=== PATIENT | female | born 1945 | race American Indian/Alaskan Native ===

== ENCOUNTER 2016-12-01 21:01 | Inpatient (IN) | payer MEDICARE, OTHER ==
[2016-12-01 21:16] VITALS: BMI 47.8
--- NOTE | 2016-12-01 21:59 | ED PDOC ---
Arrival/HPI - General Chief Complaint: Weakness/Neurological Deficit Time Seen by Provider: 12/01/16 21:21 Historian: Patient - History of Present Illness Narrative History of Present Illness (Text): 12/01/16 21:52 Layne Urbano is a 71 year old female, with a history of hypertension, diabetes on insulin pump and hyperlipidemia, presents to the emergency department complaining of lightheadedness and mild chest discomfort since 7 pm today. Patient states she is "not feeling well" and feels like her blood sugar was dropping. At the emergency department, her glucose level is 94 and her last meal was at 4:30 today evening. Reports her glucose level is usually in 120s, but states it has been dropping low recently. Patient also reports of right sided back pain. Patient had a dry cough for few hours prior to arrival, which has resolved now. Denies fever, chills, shortness of breath, nausea, vomiting, diarrhea, urinary symptoms, or any other complaints at this time. Time/Duration: 1-3 hours Symptom Onset: Gradual Severity Level: Mild Activities at Onset: Light Context: Home Past Medical History - Provider Review Nursing Documentation Reviewed: Yes - Reproductive Menopause: Yes - Endocrine/Metabolic Hx Diabetes Mellitus Type 2: Yes - Psychiatric Hx Substance Use: No - Anesthesia Hx Anesthesia: No Family/Social History - Physician Review Nursing Documentation Reviewed: Yes Family/Social History: No Known Family HX Smoking Status: Never Smoked Hx Alcohol Use: No Hx Substance Use: No Allergies/Home Meds Allergies/Adverse Reactions: Allergies aspirin Allergy (Verified 12/01/16 21:40) upset stomach Review of Systems - Physician Review All systems were reviewed & negative as marked: Yes - Review of Systems Constitutional: Normal. absent: Fatigue, Fevers Respiratory: Normal. absent: SOB, Cough Cardiovascular: Chest Pain. absent: Palpitations Gastrointestinal: absent: Abdominal Pain, Diarrhea, Nausea, Vomiting Genitourinary Female: Normal. absent: Dysuria, Frequency Musculoskeletal: Back Pain Neurological: Other (lightheaded ). absent: Headache Psychiatric: Normal Physical Exam Vital Signs Reviewed: Yes Vital Signs Temp Pulse Resp BP Pulse Ox 12/02/16 02:00 78 18 163/77 H 96 12/02/16 00:34 79 18 165/94 H 96 12/01/16 21:29 98.1 F 77 18 160/77 H 97 Temperature: Afebrile Blood Pressure: Hypertensive Pulse: Regular Respiratory Rate: Normal Appearance: Positive for: Well-Appearing, Non-Toxic, Comfortable Pain Distress: None Mental Status: Positive for: Alert and Oriented X 3 Finger Stick Blood Glucose: 97 - Systems Exam Head: Present: Atraumatic, Normocephalic Pupils: Present: PERRL Conjunctiva: Present: Normal Mouth: Present: Moist Mucous Membranes. No: Dry Respiratory/Chest: Present: Clear to Auscultation, Good Air Exchange. No: Respiratory Distress, Accessory Muscle Use Cardiovascular: Present: Regular Rate and Rhythm, Normal S1, S2. No: Murmurs Abdomen: Present: Normal Bowel Sounds. No: Tenderness, Distention, Peritoneal Signs, Rebound, Guarding Back: Present: Normal Inspection. No: CVA Tenderness, Midline Tenderness Upper Extremity: Present: Normal Inspection. No: Cyanosis, Edema Lower Extremity: Present: Normal Inspection. No: Edema Neurological: Present: GCS=15, CN II-XII Intact, Speech Normal, Motor Func Grossly Intact, Normal Sensory Function Skin: Present: Dry, Normal Color, Cold (cool to touch ). No: Rashes Psychiatric: Present: Alert, Oriented x 3, Normal Insight, Normal Concentration Medical Decision Making ED Course and Treatment: 12/01/16 22:04 Impression: A 71 year old female who presents to the emergency department complaining of lightheadedness since 7 pm today. States she feels like her blood glucose was dropping. Plan: -- EKG -- Labs, cardiac enzymes -- IV fluids -- Urine culture -- Urinalysis -- Reassess and disposition Progress Notes: EKG interpreted by me: NSR @ 70 bpm. Left axis deviation. 12/01/16 23:41 Case discussed with who is aware and agrees with the plan to observe patient to telemetry for chest pain. Accepts patient under her service. - Lab Interpretations Lab Results: 12/01/16 22:20 12/01/16 22:20 Lab Results 12/01/16 22:20: Sodium 140, Potassium 4.3, Chloride 103, Carbon Dioxide 27, Anion Gap 14, BUN 14, Creatinine 0.9, Est GFR ( Amer) > 60, Est GFR (Non- Af Amer) > 60, Random Glucose 94, Calcium 9.8, Magnesium 2.1, Total Bilirubin 0.7, AST 31, ALT 19, Alkaline Phosphatase 93, Lactate Dehydrogenase 484, Total Creatine Kinase 144, Troponin I 0.06, NT-Pro-B Natriuret Pep 196, Total Protein 8.8 H, Albumin 4.2, Globulin 4.7, Albumin/Globulin Ratio 0.9 L 12/01/16 22:20: WBC 6.4, RBC 5.02, Hgb 13.9, Hct 41.8, MCV 83.3, MCH 27.7, MCHC 33.3, RDW 15.3 H, Plt Count 224, MPV 9.2, Gran % 45.9 L, Lymph % (Auto) 37.7 H, [place] % (Auto) 13.9 H, Eos % (Auto) 2.2, Baso % (Auto) 0.3, Gran # 2.94, Lymph # 2.4, [place] # 0.9 H, Eos # 0.1, Baso # 0.02 12/01/16 21:22: POC Glucose (mg/dL) 97 - RAD Interpretation Radiology Orders: 12/01/16 21:51 CHEST PORTABLE [RAD] Stat - Medication Orders Current Medication Orders: Sodium Chloride (Sodium Chloride 0.9%) 1,000 mls @ 100 mls/hr IV .Q10H LELA Last Admin: 12/01/16 22:37 Dose: 100 mls/hr - Scribe Statement The provider has reviewed the documentation as recorded by the Scar Dooley Provider Attestation: All medical record entries made by the Scar were at my direction and personally dictated by me. I have reviewed the chart and agree that the record accurately reflects my personal performance of the history, physical exam, medical decision making, and the department course for this patient. I have also personally directed, reviewed, and agree with the discharge instructions and disposition. Disposition/Present on Arrival - Present on Arrival Any Indicators Present on Arrival: No History of DVT/PE: No History of Uncontrolled Diabetes: No Urinary Catheter: No History of Decub. Ulcer: No History Surgical Site Infection Following: None - Disposition Have Diagnosis and Disposition been Completed?: Yes Diagnosis: Chest pain Disposition: HOME/ ROUTINE Disposition Time: 23:00 Patient Plan: Admission, Discharge Condition: STABLE
[2016-12-01 22:21] LABS: ADD MANUAL DIFF? NO
[2016-12-01] MEDS: Sodium Chloride 0.9% 1,000 ML IV SCH (22:37)
[2016-12-01 22:43] LABS: ALB/GLOB RATIO 0.9 (1.1-1.8); ALKALINE PHOSPHATASE 93 U/L (38-133); ALT/SGPT 19 U/L (7-56); AST/SGOT 31 U/L (15-39); BILIRUBIN,TOTAL 0.7 mg/dL (0.2-1.3); BLOOD UREA NITROGEN 14 mg/dL (7-21); CALCIUM 9.8 mg/dL (8.4-10.5); CARBON DIOXIDE 27 mmol/L (21-33); CHLORIDE 103 mmol/L (98-107); GFR AFRICAN-AMERICAN > 60; GLUCOSE,RANDOM 94 mg/dL (70-110); MAGNESIUM 2.1 mg/dL (1.7-2.2); POTASSIUM 4.3 mmol/L (3.6-5.0); SODIUM 140 mmol/L (132-148); TOTAL PROTEIN 8.8 g/dL (5.8-8.3)
[2016-12-01 22:44] LABS: BASO # 0.02 K/mm3 (0.0-2.0); BASO % 0.3 % (0.0-3.0); EOS # 0.1 (0.0-0.7); EOS % 2.2 % (1.5-5.0); GRAN # 2.94 (1.4-6.5); GRAN % 45.9 % (50.0-68.0); HEMATOCRIT 41.8 % (36.0-48.0); LYMPH # 2.4 (1.2-3.4); LYMPH % 37.7 % (22.0-35.0); MEAN CELL VOLUME 83.3 fL (80.0-105.0); MEAN CORPUSCULAR HEMOGLOBIN 27.7 pg (25.0-35.0); MEAN CORPUSCULAR HGB CONC 33.3 g/dl (31.0-37.0); MEAN PLATELET VOLUME 9.2 fl (7.0-11.0); MONO # 0.9 (0.1-0.6); MONO % 13.9 % (1.0-6.0); PLATELET COUNT 224 10^3/uL (120.0-450.0); RED CELL DISTRIBUTION WIDTH 15.3 % (11.5-14.5); WHITE BLOOD COUNT 6.4 10^3/ul (4.5-11.0)
[2016-12-01 22:55] LABS: TROPONIN I 0.06 ng/mL
[2016-12-02 00:47] LABS: URINE BILIRUBIN MODERATE (NEGATIVE); URINE BLOOD NEGATIVE (NEGATIVE); URINE GLUCOSE (UA) >=1000 mg/dL (NEGATIVE); URINE KETONE NEGATIVE (NEGATIVE); URINE LEUKOCYTE ESTERASE NEGATIVE Leu/uL (NEGATIVE); URINE PROTEIN 30 mg/dL (<30 mg/dL); URINE UROBILINOGEN 0.2 E.U./dL (<1 E.U./dL)
[2016-12-02 00:55] LABS: URINE APPEARANCE SL CLOUDY (CLEAR); URINE COLOR LIGHT YELLOW (YELLOW)
[2016-12-02 00:59] LABS: URINE EPITHELIAL CELLS 0 - 2 /hpf (0-5); URINE RBC 0 - 2 /hpf (0-2); URINE WBC 0 - 2 /hpf (0-6)
[2016-12-02] MEDS: Sodium Chloride 0.9% 1,000 ML IV SCH ×2 (08:00→16:30)
--- NOTE | 2016-12-02 09:22 | RAD ---
HISTORY: r/o infiltrate COMPARISON: No prior. FINDINGS: LUNGS: No active pulmonary disease. PLEURA: No significant pleural effusion identified, no pneumothorax apparent. CARDIOVASCULAR: Mild cardiomegaly OSSEOUS STRUCTURES: No significant abnormalities. VISUALIZED UPPER ABDOMEN: Normal. OTHER FINDINGS: None. IMPRESSION: No active disease.
[2016-12-02] MEDS: INSULIN PUMP SC SCH ×2 (12:06→12:08)
--- NOTE | 2016-12-02 12:15 | CON ---
DATE: 12/02/2016 INDICATIONS: Weakness, dizziness, vertigo. HISTORY OF PRESENT ILLNESS: This is a 71-year-old diabetic woman who recently moved here from [place] who felt weak, dizzy, vertiginous and as if she had a low blood sugar yesterday. She came to the Emergency Room and was admitted. She had taken some juice and at the time the EMT arrived, her blood sugar was 88. Subsequently, her blood sugars have not been very low, but she continues to experience dizziness, weakness and not feeling well. There is a vertiginous component. She has some chronic back pain. There is no chest pain , shortness of breath, orthopnea, PND, syncope, palpitations, claudication, fever, chills, cough, sputum production, hemoptysis, abdominal pain, nausea, vomiting, diarrhea, constipation, or melena. She does experience chronic dyspnea on exertion. PAST MEDICAL HISTORY: Notable for diabetes and COPD/asthma. She states that she underwent a cardiac stress test in approximately 2008 which was uneventful. She is not aware of any cardiac diagnoses. There is no history of myocardial infarction, rheumatic fever, angina, congestive heart failure, arrhythmia, stroke, TIA or gout. MEDICATIONS: At the time of admission include Advair, Coreg, Invokana, Lasix, Lodine, gabapentin, omeprazole, Victoza, simvastatin, metformin. She is on an insulin pump. ALLERGIES: SHE NOTES AN ALLERGY TO ASPIRIN, BUT DESCRIBES A GASTRIC INTOLERANCE. There is a history of GERD. SOCIAL HISTORY: She is a nonsmoker. She does not drink alcohol. She lives at home. She is ambulatory. FAMILY HISTORY: Noncontributory. REVIEW OF SYSTEMS: A 10-point review of systems is otherwise unremarkable except as noted above. PHYSICAL EXAMINATION: GENERAL: She is a well-developed woman lying on a stretcher in the Emergency Room in no acute distress. VITAL SIGNS: She is in sinus rhythm at 86 beats per minute. She is afebrile, blood pressure 156/83, respirations 18, O2 sat 95-97% on room air and nasal cannula. HEENT: Reveals no neck vein distention, thyromegaly, or carotid bruits. Mucous membranes are moist. Conjunctivae are pink. NECK: Supple. CHEST: Lung salvador clear. HEART: Revealed normal first and second heart sounds. ABDOMEN: Obese, soft and benign. Bowel sounds present. No mass, organomegaly , tenderness, rebound, guarding, CVA tenderness or palpable abdominal aortic aneurysm. EXTREMITIES: Revealed no cyanosis, clubbing, or edema. NEUROLOGIC: Awake, alert and oriented. PSYCHIATRIC: Normal as to mood and affect. SKIN: Warm and dry, no rashes or cellulitis. LABORATORY AND IMAGING: A chest x-ray is a portable study/ It reveals no active disease. The EKG demonstrates regular sinus rhythm with a leftward axis , poor R-wave progression, nonspecific ST-wave changes. White count and platelet count normal, hemoglobin/hematocrit unremarkable. Electrolytes, BUN, creatinine and blood sugar, LFTs, CK are all unremarkable. Troponin 0.06 and 0.06 which is indeterminate. BNP is 196. Urinalysis is noted. IMPRESSION: The patient is a 71-year-old woman complaining of weakness, dizziness, some vertiginous component, chronic dyspnea on exertion, chronic back pain. There is no chest pain. I have discussed the case with Dr. Lebron. She will be admitted to telemetry. We will get serial EKGs and enzymes. We will monitor her blood sugars. I will order an echocardiogram. She will have an endocrine diabetes consultation with Dr. Anderson. I would check stool for occult blood, monitor I's and O's, check postural vital signs and hemoglobin A1c. We will follow along with you. I will make additional recommendations based on her clinical course. An outpatient nuclear stress test can be arranged in the near future as well. Jean Carlos Carolina MD cc: [id number] TT: 12/02/2016 12:14:46 Confirmation # [id number] Dictation # [id number] mario QUINN
[2016-12-02] MEDS ORDERED: Levalbuterol 0.63 MG/3 ML Inhal Soln UD IH PRN (12:21)
--- NOTE | 2016-12-02 13:04 | HP ---
HISTORY OF PRESENT ILLNESS: This 71-year-old female was examined at her bedside. Her case was reviewed in detail with vault teller Dr. Jean Carlos Carolina and her nurse, Myra Garibay. The patient presented to the [facility] late last evening complaining of weakness, dizziness in the setting of hypoglycemia. She has recently moved to the [facility] area from [place] where she had been treated with multiple medications for her type 2 diabetes mellitus including metformin, Victoza, Invokana, insulin coverage and insulin pump. The patient is in the process of trying to find a local tip length checker and feels that her symptoms may be secondary to hypoglycemia. In the Emergency Room, she was evaluated and found to have an unremarkable EKG. No active chest pain and flat troponins of no clinical significance as per cardiology. At present, the patient is awaiting an endocrinology evaluation and denying any active chest pain, shortness of breath , fever or chills. PAST MEDICAL HISTORY: She has longstanding type 2 diabetes mellitus, chronic obstructive pulmonary disease, chronic hypertension, morbid obesity, neuropathy , GERD, hyperlipidemia and degenerative arthritis. OUTPATIENT MEDICATIONS: Had included Advair, Coreg, Invokana, Lasix, Lodine, Neurontin, Prilosec, Victoza, insulin pump, Zocor and metformin. ALLERGIES: She has no known allergies to medication, but states ASPIRIN CAUSES GASTRIC INTOLERANCE WITH GERD. SOCIAL HISTORY: She is a nondrinker, nonsmoker, non-IV-drug misuser. FAMILY HISTORY: Noncontributory. REVIEW OF SYSTEMS: HEAD: No headache or seizure. EYES: No change in visual acuity. EARS: No hearing loss. THROAT: No swallowing difficulty. NECK: No stiffness. CARDIAC: Chronic hypertension. PULMONARY: No cough, no hemoptysis. GASTROINTESTINAL: She has a history of GERD and an unremarkable endoscopy, colonoscopy within the past 5 years. GENITOURINARY: No dysuria. SKIN: Without rash. NEUROLOGICAL: Neuropathy. VASCULAR: No claudication. PSYCHOLOGICAL: No knowledge of depression. NEUROLOGICAL: No knowledge of stroke. BMI: 47.8 kg/m2. PHYSICAL EXAMINATION: GENERAL: She is in a normal sinus rhythm on the cardiac cath rn. VITAL SIGNS: Temperature 98.2, respirations 18, pulse 82, and blood pressure 143/75 with a pulse ox of 96% room air. HEENT: Head is normocephalic, atraumatic. Eyes: No icterus. Ears clear. Throat not injected. NECK: Supple. HEART: S1, S2. No pathological rubs, murmurs, or gallops. LUNGS: Clear. ABDOMEN: Obese. No palpable organomegaly, no rebound, no guarding, no tenderness. EXTREMITIES: No edema. SKIN: Without rash. NEUROLOGIC: Intact. PSYCHOLOGICAL: Alert. VASCULAR: Legs warm to touch. LABORATORY DATA: White count 6400, hemoglobin 13.9, hematocrit 41.8, platelets 224,000. Sodium 140, K 4.3, chloride 103, bicarb 27, BUN 14, creatinine 0.9, random blood sugar was 97. All liver function testing was normal including bilirubin 0.7, AST 31, ALT 19, alk phos 93. Troponin x 2 was 0.06 with a CPK normal at 144. BNP was normal, 196. Urinalysis shows 30 mg/dL of protein, positive glucose, no bacteria, no white cells. Chest x-ray showed no active disease. EKG shows normal sinus rhythm with nonspecific ST-T wave changes. IMPRESSION: A 71-year-old female with multiple medical problems as listed above. Doubt myocardial infarction, doubt unstable angina, with presentation most likely secondary to hypoglycemia in the setting of type 2 diabetes mellitus and multiple diabetic medications as listed above. PLAN: At present is to admit this patient to the cardiac unit. She will be seen by Dr. Angela Anderson from endocrinology. She is to only have her insulin pump as per Dr. Anderson and will discontinue metformin, Victoza, Invokana, and insulin a.c. meals as she was taking previously. She will have serial cardiac enzymes. A 2D echocardiogram has been ordered. She will continue on Brovana inhalational therapy q. 12, Coreg 12.5 mg p.o. b.i.d., insulin pump as outlined by Dr. Anderson, Lasix 40 mg p.o. b.i.d., Lipitor 20 mg p.o. at dinnertime, Pepcid 40 mg p.o. at bedtime, Pulmicort inhalational therapy q. 12, and 0.9 saline at 100 mL per hour with Xopenex q. 6 hours p.r.n. I have ordered a head CT without contrast for completeness sake. She continues with nasal O2 p.r.n. She continues on a heart healthy diabetic diet. Blood sugars a.c. meals and at bedtime. Orthostatic blood pressures have been ordered by Dr. Carolina. Ultimate plan will be for cardiac and endocrine medication adjustment. The patient is scheduled to have TSH, lipids, hemoglobin A1c with ultimate plan for discharge to home and follow up with cardiology and endocrinology in their offices when they feel the patient is stable for discharge. All of this has been discussed in detail with the patient, co-consultants and her nurse. Greater than 60 minutes was spent in the care, coordination of care, review of care and outlining of care for this patient today. Christine Lebron MD cc: [phone] TT: 12/02/2016 13:03:51 mn KAI
--- NOTE | 2016-12-02 13:25 | CON ---
DATE: 12/02/2016 HISTORY OF PRESENT ILLNESS: This is a 71-year-old female with known history of type 2 insulin-requir ing diabetes, currently using, currently on a continuous insulin pump infusion and presents here with sudden onset of dizziness and lightheadedness and supervening precordial chest pain and is now being admitted for workup of acute coronary syndrome, and is being referred also for diabetic evaluation a nd management. She admits to having possibly had a brief bout of hypoglycemia, although she was able to document only a glucose level of 94 at the time of her sudden onset of symptoms as mentioned jero pablo. PAST MEDICAL HISTORY: As mentioned above, history of type 2 insulin-requiring diabetes on a continuo us insulin pump infusion as noted. She is also using Victoza 0.6 mg once daily given subcutaneously with Invokana 300 mg once daily as ordered. Moreover, she has also been using metformin at 500 mg da pancho. History of hypertensive cardiovascular disease and dyslipidemia, history of diabetic polyneurop athy and vasculopathy as noted. FAMILY HISTORY: Positive for hypertension and diabetes. SOCIAL HISTORY: The patient has supportive family. No known substance use. REVIEW OF SYSTEMS: As mentioned above. Admits to generalized body weakness with easy fatigability a nd tiredness and suboptimal energy level. Also admits to episodic bouts of dizziness and lightheaded ness, worse on the day of admission, which she ascribes to a possible hypoglycemic event. Also, admi ts to sudden onset of precordial chest pain and tightness, again noted on the day of admission with o ccasional bouts of shortness of breath, especially on exertion. Her oral intake is variable and subo ptimal with occasional dyspepsia and habitual constipation. PHYSICAL EXAMINATION: GENERAL: This is an obese female in no apparent distress. VITAL SIGNS: Blood pressure of 150/90, pulse of 70 beats per minute and regular, temperature 98, res pirations 20. Height is 5 feet 3 inches, weight is 270 pounds. HEENT: Head normocephalic. Eyes anicteric with pink conjunctivae. Fundoscopy not possible at this time. Ears, nose and throat otherwise normal. NECK: Supple. Thyroid gland is normal size. No carotid bruits or any cervical adenopathy. CARDIOPULMONARY: Some adynamic precordium. S1, S2 is rapid and regular. LUNGS: Clear to auscultation. ABDOMEN: Obese, soft with positive bowel sounds. EXTREMITIES: No peripheral edema. Pulses are +2 bilaterally. LABORATORY DATA: The chemistry showed a BUN of 14, sodium 140, potassium 4.3, chloride 103, CO2 of 2 7, glucose 94, and creatinine 0.9. Her albumin level is 4.2, calcium level is 9.8 and she has normal liver transaminases. ASSESSMENT: This is a 71-year-old female with known history of type 2 insulin-requiring diabetes, op timally controlled on a continuous insulin pump infusion with underlying morbid obesity, which has __ ___ further increased insulin resistance and impaired glucose tolerance thereof. PLAN OF MANAGEMENT: As discussed with the patient and staff, we will allow the patient to continue t he use of her insulin pump and also be allowed to adjust her own basal and bolus insulin dose regimen as given. We will obtain serial chemistries and supplement accordingly as needed. We will obtain a hemoglobin A1c to confirm her prior glycemic control and baseline thyroid function studies and lipid panel will be ordered, especially with the possibility of fatty liver with underlying metabolic syn drome as noted. We will reinforce diabetic education and dietary instructions at the time of this ad mission and also reinforce weight loss efforts and healthier food choices thereof. A dietary evaluat ion with our inpatient electrical troubleshooter will be obtained at this time. We will follow. Angela Anderson MD cc: [id number] TT: 12/02/2016 13:24:26 Confirmation # [id number] Dictation # [id number] connor
--- NOTE | 2016-12-02 13:28 | CT ---
PROCEDURE: CT HEAD WITHOUT CONTRAST. HISTORY: vertigo COMPARISON: None available. TECHNIQUE: Axial computed tomography images were obtained through the head/brain without intravenous contrast. Radiation dose: Total exam DLP = 745 mGy-cm. This CT exam was performed using one or more of the following dose reduction techniques: Automated exposure control, adjustment of the mA and/or kV according to patient size, and/or use of iterative reconstruction technique. FINDINGS: HEMORRHAGE: No intracranial hemorrhage. BRAIN: No mass effect or edema. No atrophy or chronic microvascular ischemic changes. VENTRICLES: Unremarkable. No hydrocephalus. CALVARIUM: Unremarkable. PARANASAL SINUSES: Unremarkable as visualized. No significant inflammatory changes. MASTOID AIR CELLS: Unremarkable as visualized. No inflammatory changes. OTHER FINDINGS: None. IMPRESSION: Normal CT of the Head.
[2016-12-02] MEDS ORDERED: Pneumococcal 23-Valent Vaccine IM ONE (14:17)
[2016-12-02] MEDS: Arformoterol 15 mcg/2 ml Inh Sol IH SCH (19:33)
[2016-12-02] MEDS: Budesonide 0.25 mg/2 ml Inhal Susp UD IH SCH (19:33)
--- NOTE | 2016-12-02 21:56 | CARD ---
APPROVED REPORT EKG Measurement Heart [id number] MD [id number] <Conclusion> Normal sinus rhythm Left axis deviation Abnormal ECG
--- NOTE | 2016-12-02 22:50 | CARD ---
APPROVED REPORT EKG Measurement Heart [id number] SD [id number] <Conclusion> Normal sinus rhythm with sinus arrhythmia Left axis deviation Nonspecific intraventricular conduction delay Abnormal ECG
[2016-12-03] MEDS: Sodium Chloride 0.9% 1,000 ML IV SCH ×3 (02:07→17:15)
[2016-12-03] MEDS: Arformoterol 15 mcg/2 ml Inh Sol IH SCH ×2 (08:09→19:27)
[2016-12-03 08:13] LABS: ALKALINE PHOSPHATASE 82 U/L (38-133); ALT/SGPT 18 U/L (7-56); AST/SGOT 28 U/L (15-39); BILIRUBIN,TOTAL 0.5 mg/dL (0.2-1.3); BLOOD UREA NITROGEN 13 mg/dL (7-21); CALCIUM 9.4 mg/dL (8.4-10.5); CARBON DIOXIDE 27 mmol/L (21-33); CHLORIDE 107 mmol/L (98-107); CHOLESTEROL 181 mg/dL (130-200); GFR AFRICAN-AMERICAN > 60; GLUCOSE,RANDOM 96 mg/dL (70-110); POTASSIUM 4.2 mmol/L (3.6-5.0); SODIUM 141 mmol/L (132-148); TOTAL PROTEIN 7.7 g/dL (5.8-8.3)
[2016-12-03] MEDS: Budesonide 0.25 mg/2 ml Inhal Susp UD IH SCH ×2 (08:14→19:27)
[2016-12-03 08:23] LABS: TROPONIN I 0.06 ng/mL
--- NOTE | 2016-12-03 09:33 | PN ---
DATE: 12/03/2016 SUBJECTIVE: The patient is seen sitting in bed on telemetry. She states she still does not feel wel l. She feels she has a great deal of indigestion. She denies any chest pain or dyspnea. MEDICATIONS: Include Brovana, carvedilol 12.5 mg b.i.d., Lasix 40 mg b.i.d., Lipitor 20 mg daily, Pe pcid 40 mg daily, Pulmicort inhaler, Xopenex and her insulin pump. OBJECTIVE: GENERAL: She is an obese middle-aged woman. VITAL SIGNS: Her blood pressure is 160/80 with a pulse of 84 in sinus, respirations are 14. She is afebrile. HEENT: No JVD. CHEST: A few scattered rhonchi. HEART: PMI displaced laterally with distant sounds noted. ABDOMEN: Soft, obese, nontender, normoactive bowel sounds. EXTREMITIES: No edema. DIAGNOSTIC DATA: Potassium 4.2, BUN and creatinine are 13 and 0.8, glucose is 96. Cholesterol is 18 1 with triglycerides 231 with an HDL of 40, an LDL of 81. TSH 4.79. Three sets of cardiac enzymes w ere negative. IMPRESSION: 1. Weakness and dizziness, etiology uncertain. No evidence of hemodynamic instability or significan t dysrhythmias. 2. History of diabetes. 3. History of obesity. RECOMMENDATIONS: Her current medications should be continued. An echocardiogram is pending and will be reviewed. An eventual stress test would be advisable. No other specific cardiac testing appears necessary at the present time. The need for weight loss and control of diabetes was discussed with her. We will follow along as needed. Tamir Martin MD cc: [id number] TT: 12/03/2016 09:32:53 Confirmation # [id number] Dictation # [id number] tn
--- NOTE | 2016-12-03 12:03 | PN ---
DATE: 12/03/2016 ROOM: 265. SUBJECTIVE: This is a 71-year-old obese female with uncontrolled type 2 insulin requiring diabetes m any years ago and has since then been on a [employer] insulin pump for the last 5 years with superveni ng optimal and excellent metabolic control of her diabetic condition at this time. Her latest hemogl obin A1c was 6.4% prior to this admission and we are still awaiting the current A1c level obtained to day. She is undergoing cardiac workup for acute coronary syndrome as noted. Her current chemistry s hows a BUN of 13, sodium 141, potassium 4.2, chloride 107, CO2 27, glucose 96, and creatinine 0.8. H er TSH is slightly elevated at 4.79, possibly dealing with subclinical hypothyroidism. The patient h as opted not to go on any kind of new medications for now and will follow her thyroid studies in the next 3 months or so as noted. For now, we will allow the patient to continue her [employer] insulin pu mp infusion with continuous basal insulin as given, and she has been allowed to self-adjust her bolus insulin doses accordingly. We will obtain serial chemistries and supplement accordingly as needed. We will follow. Angela Anderson MD cc: [id number] TT: 12/03/2016 12:02:41 Confirmation # [id number] Dictation # [id number] rodger
[2016-12-03] MEDS: INSULIN PUMP SC SCH (12:42)
[2016-12-03] MEDS ORDERED: Insulin Lispro 1 UNITS/0.01 ML SC ONE (18:00)
--- NOTE | 2016-12-03 21:36 | PN ---
DATE: 12/03/2016 This 71-year-old female was examined at her bedside. Her case was reviewed in detail with her nurse, Kaushik Marrero, registered nurse. The patient remains in a normal sinus rhythm on the cardiac monit or. She denies any chest pain. She is complaining of neuropathy and musculoskeletal pain and is cur rently on insulin pump with her other diabetic medication on hold, including metformin, Invokana, and Victoza. The patient has blood sugars in the low 90s and has had no cardiac arrhythmia on the cardia c monitor and is denying any fever or chills. PHYSICAL EXAMINATION: VITAL SIGNS: Temperature 98.3, respirations 20, pulse 80, blood pressure 154/74 with pulse ox 97% on room air. HEAD: Normocephalic, atraumatic. EYES: Show no icterus. EARS: Clear. THROAT: Noninjected. NECK: Supple. HEART: Regular S1, S2. No pathological rubs, murmurs, or gallops. LUNGS: Clear. ABDOMEN: Obese. EXTREMITIES: No edema. SKIN: Without rash. NEUROLOGIC: Intact. PSYCHOLOGIC: Alert. VASCULAR: Legs warm to touch. LABORATORY DATA: Sodium 141, K 4.2, chloride 107, bicarbonate 27, BUN 13, creatinine 0.8, random blo od sugar is 96. All liver function testing is normal. Bilirubin 0.5, AST 28, ALT 18, alkaline phosp hatase 82. CPK 196, troponin 0.06 x 3. Cholesterol 181, LDL 81. T4 normal at 5.6. Urinalysis, no bacteria, no red blood cells. Head CT shows no acute abnormalities. No evidence of recent stroke an d was interpreted as a normal head CT as reviewed by Dr. Whittaker. IMPRESSION: A 71-year-old female with hypoglycemia, type 2 diabetes mellitus, morbid obesity, chroni c hypertension, hyperlipidemia, peripheral neuropathy, peptic ulcer disease with gastroesophageal ref lux disease, chronic obstructive pulmonary disease, degenerative arthritis. PLAN: At present is to continue Xopenex inhalational therapy, Tylenol p.r.n. pain, gentle IV fluids of 0.9 saline at 100 mL per hour, Pulmicort inhalational therapy, Pepcid 40 mg at bedtime, Neurontin 300 mg b.i.d. and Neurontin 600 mg at bedtime, Lipitor 20 mg p.o. at dinnertime, Lasix 40 mg p.o. b.i .d., insulin pump as outlined by Dr. Anderson from endocrinology, Cozaar 50 mg p.o. daily has been added, Coreg 12.5 mg p.o. b.i.d. continues and she receives Brovana inhalational therapy q. 12. Hemoglobin A1c is pending. The patient is awaiting 2D echocardiogram. She is ordered to have a heart healthy d iabetic diet, nasal O2 p.r.n., pulmonary toiletry and fall precautions. Once she is cleared by her e ndocrine and blood bank credit clerk, we will ready the patient for discharge to home. Greater than 6 0 minutes was spent in the care, coordination of care, review of care with this patient, her nurse an d co-consultants today. Overall prognosis remains stable. Christine Lebron MD cc: [phone] TT: 12/03/2016 21:36:10 Confirmation # [id number] Dictation # [id number] rodger
[2016-12-04] MEDS: Sodium Chloride 0.9% 1,000 ML IV SCH ×3 (02:32→22:05)
--- NOTE | 2016-12-04 05:49 | CARD ---
APPROVED REPORT EXAM: Two-dimensional and M-mode echocardiogram with Doppler and color Doppler. 2D DIMENSIONS IVSd1.3 (0.7-1.1cm)LVDd4.6 (3.9-5.9cm) PWd1.4 (0.7-1.1cm)LVDs3.4 (2.5-4.0cm) FS (%) 25.1 %LVEF (%)49.6 (>50%) M-Mode DIMENSIONS Left Atrium (MM)3.60 (2.5-4.0cm)Aortic Root3.20 (2.2-3.7cm) Aortic Cusp Exc.1.70 (1.5-2.0cm) Aortic Valve AoV Peak Odkvxmow319.0cm/sAoV VTI34.3cmAO Peak GR.10mmHg LVOT Peak Uokaivus783.0cm/sLVOT VTI22.50cmAO Mean GR.7mmHg Mitral Valve MV E Knvvxjqe399.0cm/sMV A Zfvrapsd857.0cm/sE/A ratio0.9 TDI Lateral E' Peak V5.85cm/sMedial E' Peak V5.65cm/sE/Lateral E'23.8 E/Medial E'24.6 Tricuspid Valve TR Peak Oxtdmusd752vc/sRAP QGIFFEAD94hkGjNY Peak Gr.41mmHg IPWQ84tpMr LEFT VENTRICLE The left ventricle is normal size. There is mild concentric left ventricular hypertrophy. The systolic function is mildly impaired. There is moderate hypokinesis in the basal inferoseptal wall. RIGHT VENTRICLE The right ventricle is normal size. The right ventricular systolic function is normal. ATRIA The left atrium size is normal. The right atrium size is normal. The interatrial septum is intact with no evidence for an atrial septal defect. AORTIC VALVE The aortic valve is mildly sclerotic. No aortic regurgitation is present. MITRAL VALVE The mitral valve is normal in structure. The mitral valve leaflets are calcified. Mitral regurgitation is mild. TRICUSPID VALVE The tricuspid valve is normal in structure. There is moderate tricuspid regurgitation. PULMONIC VALVE The pulmonary valve is normal in structure. GREAT VESSELS The aortic root is normal in size. The IVC is normal in size and collapses >50% with inspiration. PERICARDIAL EFFUSION There is no pleural effusion. There is no pericardial effusion. <Conclusion> Normal chamber size. Mildly reduced LV systolic function with basal inferoseptal hypokinesis. Mild MR. Moderate TR.
[2016-12-04] MEDS: Budesonide 0.25 mg/2 ml Inhal Susp UD IH SCH ×2 (08:52→19:22)
[2016-12-04] MEDS: Arformoterol 15 mcg/2 ml Inh Sol IH SCH ×2 (08:52→19:22)
--- NOTE | 2016-12-04 11:17 | PN ---
DATE: 12/04/2016 SUBJECTIVE: The patient is seen lying in bed on telemetry. She states she is comfortable. She feel s better today. She denies any dizziness at the moment. CURRENT MEDICATIONS: Remain Brovana, Coreg 12.5 mg b.i.d., Cozaar 50 mg daily, Lasix 40 mg b.i.d., L ipitor 20 mg daily, Neurontin, Pepcid 40 mg daily, Pulmicort inhaler, and Xopenex. OBJECTIVE: GENERAL: She is an obese middle-aged woman. VITAL SIGNS: Her blood pressure is 117/54 with a pulse of 84 in sinus. Respirations are 16. She is afebrile. HEENT: No JVD. CHEST: A few scattered rhonchi heard. HEART: PMI in normal position. No pathologic murmur or gallops audible. ABDOMEN: Soft, nontender, normoactive bowel sounds. EXTREMITIES: No edema. DIAGNOSTIC DATA: An echocardiogram was reviewed and reveals evidence of normal chamber size with mil dly-reduced LV systolic function, and evidence of basal inferoseptal hypokinesis, mild mitral regurgi tation, and moderate tricuspid regurgitation were seen. No morning labs are pending. IMPRESSION: 1. Recent weakness and dizziness. Improved. No clear etiology determined. 2. History of diabetes. 3. History of obesity. 4. Mild wall motion abnormality on echocardiogram, thus, needs stress testing in the near future. RECOMMENDATIONS: From cardiac standpoint, she appears stable for discharge home today. Current card iac medications should be continued. An outpatient stress test will be arranged. We will be happy t o continue to follow along as needed. Tamir Martin MD cc: [id number] TT: 12/04/2016 11:16:44 Confirmation # [id number] Dictation # [id number] hill
[2016-12-04] MEDS: INSULIN PUMP SC SCH (12:30)
--- NOTE | 2016-12-04 13:12 | PN ---
DATE: 12/04/2016 This 71-year-old female was evaluated at bedside in the presence of her sister, Maia. Her case was reviewed in detail with herself, her family and her nurse, Arthur Velazco, registered nurse. The patient is chest pain free, remains in a normal sinus rhythm on the air sampling and monitoring, but is weak and deconditioned in the setting of hypoglycemia and is currently off all additional antidiabetic medication including Victoza, metformin and Invokana. She continues on her insulin pump under the direction of Dr. Angela Anderson from endocrinology and is awaiting a TCU evaluation. PHYSICAL EXAMINATION: VITAL SIGNS: At present, her air sampling and monitoring shows normal sinus rhythm, her temperature is 97.7, respirations are 20, pulse is 76, and blood pressure is 117 /54 with a pulse ox of 94% on room air. HEAD: Normocephalic, atraumatic. EYES: Show no icterus. EARS: Clear. THROAT: Noninjected. NECK: Supple. HEART: Has a regular S1, S2. LUNGS: Clear. ABDOMEN: Soft. EXTREMITIES: No clubbing, no cyanosis, no edema. SKIN: Warm and dry. NEUROLOGICAL: Intact, but deconditioned. VASCULAR: Legs warm to touch. PSYCHOLOGICAL: Alert and oriented x 3. White count 6400, hemoglobin 13.9, hematocrit 41.8, platelets 224,000. Sodium 141, K 4.2, chloride 107, bicarb 27, BUN 13, creatinine 0.8, random blood sugar is 96. Bilirubin 0.5, AST 28, ALT 18, alk phos 82. Cholesterol 181, LDL 81. T4 normal 5.6. Urinalysis, 30 mg/dL of protein, 0-2 RBCs. IMPRESSION: A 71-year-old female with uncontrolled type 2 diabetes mellitus who presented with weakness and deconditioning in the setting of hypoglycemia, also with comorbidities of chronic obstructive pulmonary disease, morbid obesity , chronic hypertension, stable atherosclerotic heart disease. Her 2D echocardiogram is showing slightly decreased left ventricular wall motion and patient is being followed by Dr. Martin from cardiology, who will be arranging an outpatient stress test through his office. The patient also with insulin pump, insulin-dependent diabetes mellitus, hyperlipidemia, peripheral neuropathy, degenerative arthritis, peptic ulcer disease with gastroesophageal reflux disease. PLAN: At present is to continue Xopenex inhalational therapy, 0.9 saline at 100 mL per hour, Pulmicort inhalational therapy, Pepcid p.o. 40 mg at bedtime, Neurontin 300 mg p.o. b.i.d. and 600 mg at bedtime, Lipitor 20 mg p.o. at dinnertime, Lasix 40 mg p.o. b.i.d., insulin pump under the direction of Dr. Angela Anderson, Cozaar 50 mg p.o. daily, Coreg 12.5 mg p.o. b.i.d. and Brovana inhalational therapy q. 12. She is receiving nasal O2 p.r.n., a heart healthy diabetic diet. She is receiving physical therapy. I have placed a request for transitional care unit evaluation and transfer. The patient will need close endocrinology management as an outpatient and will need a stress test as an outpatient as well, which will be arranged by the cardiology office and all of this was discussed in detail and greater than 60 minutes was spent in the care, coordination of care, review of care and discussion of care with this patient at her bedside in the presence of her sister, Maia, with co-consultants from endocrine and cardiology and the nursing staff as well. Her prognosis remains stable at present. Christine Lebron MD cc: [id number] TT: 12/04/2016 13:12:04 Confirmation # [id number] Dictation # [id number] en MTDD
--- NOTE | 2016-12-04 14:22 | PN ---
DATE: 12/04/2016 ENDO FOLLOWUP NOTE ROOM: 265. SUBJECTIVE: This is a 71-year-old female with known history of type 2 insulin-requiring diabetes wit h near optimal metabolic control of her diabetic condition on a Medtronic insulin pump as given. She is undergoing workup for acute coronary syndrome because of recent precordial chest pain on the back ground of underlying vasculopathy as noted. Her latest chemistries include a BUN of 13, sodium 141, potassium 4.2, chloride 107, CO2 of 27, gluco se 96, and creatinine 0.8. Her thyroid study showed a slightly subclinical hypothyroidism with a T4 of 5.6 and a TSH of 4.79. H er hemoglobin A1c is still pending at this time. So for now, we will actually allow the patient to continue her Medtronic insulin pump, giving continu ous subcutaneous insulin, and we will allow her also to give her own basal and adjust her own bolus i nsulin dose regimen accordingly to optimize metabolic control. I actually requested the patient to c all the Medtr[employer] insulin pump company, as she just recently transferred out from [place] to [facility] over the past 2 months or so prior to admission. I also recommend that she sees an endocri nologist locally to optimize her metabolic control and also to adjust the levothyroxine dose accordin gly. We will obtain serial chemistries and supplement accordingly as needed. We will follow. Angela Anderson MD cc: [phone] TT: 12/04/2016 14:22:10 Confirmation # [id number] Dictation # [id number] hill
[2016-12-05] MEDS: Budesonide 0.25 mg/2 ml Inhal Susp UD IH SCH ×2 (08:24→19:40)
[2016-12-05] MEDS: Arformoterol 15 mcg/2 ml Inh Sol IH SCH ×2 (08:24→19:40)
[2016-12-05] MEDS: Sodium Chloride 0.9% 1,000 ML IV SCH ×2 (10:18→11:30)
--- NOTE | 2016-12-05 12:08 | PN ---
DATE: 12/05/2016 This 71-year-old female was examined at her bedside. She is receiving IV fluids and feels less dizzy and less weak today. She has been followed daily by Dr. Angela Anderson from endocrinology who has advised the patient to use only her insulin pump insulin at this time for the management of her diabetes, and has recommended the discontinuation of metformin, Victoza, and Invokana. The patient will be followed as an outpatient by Dr. Martin from cardiology, who will be arranging for an office-based stress test for completeness sake. I am working with case management to locate an travel sales consultant to accept this patient for diabetic management after she is discharged. The patient denies any fever, chills, chest pain, or shortness of breath. welt cutter shows normal sinus rhythm. PHYSICAL EXAMINATION VITAL SIGNS: Temperature 97.8, respirations 20, pulse 80, blood pressure 122/ 73 with a pulse ox of 96% on room air. HEAD: Normocephalic, atraumatic. EYES: No icterus. EARS: Clear. THROAT: Noninjected. NECK: Supple. HEART: Regular S1, S2. No pathological rubs, murmurs, or gallops. LUNGS: Clear to auscultation. ABDOMEN: Obese. EXTREMITIES: No edema. SKIN: Without rash. NEUROLOGIC: Intact. PSYCHOLOGICAL: Alert. VASCULAR: Legs warm to touch. LABORATORY DATA: White count 6400, hemoglobin 13.9, hematocrit 41.8, platelets 224,000. Sodium 141, K 4.2, chloride 107, bicarb 27, BUN 13, creatinine 0.8. Random blood sugar is 96. All liver function testing was normal including bilirubin 0.5, AST 28, ALT 18, alk phos 82, cholesterol 181, LDL 81, T4 5.6. Hemoglobin A1c is pending. Head CT showed no acute changes. Chest x-ray showed no active disease. A 2D echocardiogram read by Dr. Tamir Martin from cardiology showed normal chamber size, mildly reduced left ventricular systolic function with basal inferior septal hypokinesia and moderate mitral regurgitation. IMPRESSION: A 71-year-old morbidly obese female with uncontrolled insulin- dependent diabetes mellitus and comorbidities of chronic obstructive pulmonary disease, hypertension, hyperlipidemia, peripheral neuropathy, spinal arthritis, peptic ulcer disease with gastroesophageal reflux disease, insulin-dependent diabetes mellitus. PLAN: At present is to await evaluation for transitional care rehab for reconditioning and gait training versus discharge to home. She is awaiting physical therapy evaluation at present. The patient will need outpatient followup by endocrinology and cardiology regarding her diabetic and cardiovascular issues. She is currently receiving medications including insulin pump as outlined by Dr. Anderson, Federico inhalational therapy q. 12 hours, Coreg 12.5 mg p.o. b.i.d., Cozaar 50 mg p.o. daily, Lasix 40 mg p.o. b.i.d., Lipitor 20 mg p.o. at dinnertime, Neurontin 300 mg p.o. b.i.d., Neurontin 600 mg p.o. at bedtime, Pepcid 40 mg p.o. at bedtime, Pulmicort inhalational therapy q. 12, and Xopenex inhalational therapy q. There is an order for nasal O2 p.r.n., heart-healthy diabetic diet, blood sugar checks a.c. meals and at bedtime and Physical therapy. All of the above was discussed in detail with the patient at her bedside, as well as her nurse and co-consultants, and greater than fifty minutes was spent in the care, coordination of care, and review of care with this patient, her nurse, and co-consultants today. Prognosis remains stable at present. Christine Lebron MD cc: [id number] TT: 12/05/2016 11:59:29 Confirmation # [id number] Dictation # [id number] jn MTDD
[2016-12-05] MEDS: INSULIN PUMP SC SCH (12:51)
[2016-12-06] MEDS: Sodium Chloride 0.9% 1,000 ML IV SCH (00:32)
[2016-12-06 06:15] VITALS: O2SAT 95
[2016-12-06] MEDS: Budesonide 0.25 mg/2 ml Inhal Susp UD IH SCH (07:48)
[2016-12-06] MEDS: Arformoterol 15 mcg/2 ml Inh Sol IH SCH (07:48)
--- NOTE | 2016-12-06 08:23 | PN ---
DATE: 12/05/2016 ROOM: 266 This is a 71-year-old male with recent near optimal metabolic control of her diabetic condition with known history of type 2 insulin-requiring diabetes, currently on a Medtronic insulin pump and is now being followed closely for metabolic management. Her hemoglobin A1c level is not back yet, though it was ordered on admission. Her latest glucose levels have ranged from 95-140 mg/dL. Her latest chem istries include a BUN of 13, sodium 141, potassium 4.2, chloride 107, CO2 of 27, glucose 96, and crea tinine 0.8. So, at this time, we will continue the same basal and bolus insulin dose regimen using her Medtronic insulin pump with continuous infusion of Humalog insulin as given. Her A1c is as yet pending, but th e prior A1c done was 6.4% with her primary physician in [place] ____ but she has transferred here ____ over the last month or so. So, at this time, she is cleared for discharge and recommended a local en docrinologist in [place], i.e. Dr. Boubacar Hernández, who is a local clerk of works that can follow her for ongoing outpatient diabetic management. We will follow. Angela Anderson MD cc: [phone] TT: 12/05/2016 16:35:46 Confirmation # [id number] Dictation # [id number] sn
[2016-12-06 09:54] LABS: ADD MANUAL DIFF? NO
[2016-12-06 10:08] LABS: BASO # 0.02 K/mm3 (0.0-2.0); BASO % 0.3 % (0.0-3.0); EOS # 0.2 (0.0-0.7); EOS % 2.5 % (1.5-5.0); GRAN # 2.84 (1.4-6.5); GRAN % 46.9 % (50.0-68.0); HEMATOCRIT 40.8 % (36.0-48.0); LYMPH # 2.3 (1.2-3.4); LYMPH % 37.2 % (22.0-35.0); MEAN CELL VOLUME 83.6 fL (80.0-105.0); MEAN CORPUSCULAR HEMOGLOBIN 27.5 pg (25.0-35.0); MEAN CORPUSCULAR HGB CONC 32.8 g/dl (31.0-37.0); MEAN PLATELET VOLUME 9.2 fl (7.0-11.0); MONO # 0.8 (0.1-0.6); MONO % 13.1 % (1.0-6.0); PLATELET COUNT 224 10^3/uL (120.0-450.0); RED CELL DISTRIBUTION WIDTH 15.1 % (11.5-14.5); WHITE BLOOD COUNT 6.1 10^3/ul (4.5-11.0)
[2016-12-06 10:20] LABS: ALKALINE PHOSPHATASE 73 U/L (38-133); ALT/SGPT 23 U/L (7-56); AST/SGOT 24 U/L (15-39); BILIRUBIN,TOTAL 0.4 mg/dL (0.2-1.3); BLOOD UREA NITROGEN 15 mg/dL (7-21); CALCIUM 9.7 mg/dL (8.4-10.5); CARBON DIOXIDE 30 mmol/L (21-33); CHLORIDE 103 mmol/L (98-107); GFR AFRICAN-AMERICAN > 60; GLUCOSE,RANDOM 171 mg/dL (70-110); MAGNESIUM 1.7 mg/dL (1.7-2.2); POTASSIUM 4.1 mmol/L (3.6-5.0); SODIUM 140 mmol/L (132-148); TOTAL PROTEIN 8.1 g/dL (5.8-8.3)
[2016-12-06] MEDS: INSULIN PUMP SC SCH (11:34)
[2016-12-06 12:39] VITALS: BP 139/74; PULSE 76; RESP 20; TEMP 97.9
--- NOTE | 2016-12-06 14:44 | PN ---
DATE: 12/06/2016 ENDO FOLLOWUP NOTE ROOM: 266. This is a 71-year-old female with recent admission for acute coronary syndrome and currently undergoi ng cardiac workup at this time, and is also being followed closely for metabolic management. She has near optimal metabolic control of her diabetic condition being insulin-requiring, currently on the M edtronic insulin pump giving her basal and bolus insulin dosing regimen as noted. LABORATORY DATA: Her glucose values have ranged from 78-138 and 140 mg/dL. It was 95-161 yesterday as noted. The latest chemistries showed a BUN of 15, sodium 140, potassium 4.1, chloride 103, CO2 of 30, glucos e 171, and creatinine 0.8. So, at this time, we will continue her ongoing insulin pump infusion giving continuous basal insulin with Humalog as given. She has been allowed to self-adjust her own basal and bolus insulin dosing re gimen as noted. We are still awaiting the reports of the hemoglobin A1c, which will confirm her prio r glycemic control, although she has been having near optimal metabolic values over the past year wit h her latest A1c of 6.4% prior to admission. We will obtain serial chemistries and supplement accord ingly as needed. We will follow. Angela Anderson MD cc: [phone] TT: 12/06/2016 14:43:17 Confirmation # [id number] Dictation # [id number] hill
--- NOTE | 2016-12-07 11:08 | DS ---
FINAL DIAGNOSES: Uncontrolled insulin-dependent diabetes mellitus - improved, morbid obesity, atherosclerotic heart disease - stable, peptic ulcer disease, hyperlipidemia, hypertension, peripheral neuropathy, chronic obstructive pulmonary disease, degenerative arthritis. DISPOSITION: Home. FOLLOWUP: With Dr. Martin, cardiology, for outpatient stress test through his office. The patient has an appointment with Dr. Cyr, endocrinology, [address] [place] [address], , 01/02 at 10:30 a.m. regarding continued endocrinology management. DISCHARGE DIET: Heart-healthy diabetic. DISCHARGE MEDICATIONS: Zocor 40 mg p.o. daily, Prilosec 20 mg p.o. b.i.d., Cozaar 50 mg p.o. daily, insulin pump, as per dose instructions by Dr. Angela Anderson from endocrinology, Neurontin 300 mg b.i.d., Neurontin 600 mg p.o. at bedtime, Lasix 40 mg p.o. b.i.d., Advair Diskus 250/50 two puffs b.i.d., Coreg 12.5 mg p.o. daily and ProAir 1 puff q. 6 hours p.r.n. shortness of breath. The patient also has a referral for pain management with Dr. Ermias Card regarding her chronic spinal arthritis issues and medical management thereof. SUMMARY: This 71-year-old female was admitted to the [facility] with weakness, hypoglycemia, and an outpatient regimen for her diabetes from [place] from where she has recently relocated, which prior to this admission, included Invokana, metformin, Victoza, insulin pump, and insulin coverage. The patient was admitted to the cardiac unit, seen in consultation by perforator, Dr. Martin, underwent a 2D echocardiogram that revealed apical hypokinesia and slightly-reduced left ventricular ejection fraction, for which he recommended continued medical therapy as outlined above, and an outpatient stress test for completeness sake, which she will be arranging through his office. The patient also had her diabetic medication adjusted and was treated with only her insulin pump under the direction of Dr. Angela Anderson from endocrinology, and a followup endocrinology appointment was made with Dr. Cyr for her outpatient management upon discharge. The patient was seen in consultation by the therapy division, deemed safe for ambulation and discharged to home. At the time of her discharge, her vital signs were temperature 97.9, respirations 20, pulse 76, and blood pressure 139/ 74. telemetry monitor showed normal sinus rhythm, pulse ox was 95% on room air. Her labs showed white count 6100, hemoglobin 13.4, hematocrit 40.8, platelets 224,000. Sodium 140, K 4.1, chloride 103, bicarb 30, BUN 15, creatinine 0.8. Random blood sugar was 138. All liver function testing was normal including bilirubin 0.4, AST 24, ALT 23, alk phos 73. Magnesium was normal at 1.7. The patient's head CT showed no acute changes. Chest x-ray showed no active disease. The patient will be monitored closely as an outpatient through my office, as well as cardiology and endocrinology, and the patient has been advised for any change in signs and symptoms to present directly to the [facility] Emergency Room. Greater than 50 minutes were spent in the care, coordination of care, review of care, and discharge management of this patient today with the patient, her family, her nurse - Nicole Nava, registered nurse, and co-consultants. Her prognosis remains stable at present. Christine Lebron MD cc: [phone] TT: 12/07/2016 11:08:00 jn MTDD
== END 2016-12-06 16:32 | DRG 638 ==
LOC: ED 21:01 → ERH 23:00 → OBSVTOIN 12-02 12:42 → ERH 12-02 14:58 → 2RNO 12-02 16:25
PROVIDERS: ADMIT Internal Medicine; ATTEND Internal Medicine
PROC: 3E0F7GC Introduction of Other Therapeutic Substance into Respiratory Tract, Via Natural or Artificial Opening (ICD-10-PCS; principal; 2016-12-02)
DX: E11.649 Type 2 diabetes mellitus with hypoglycemia without coma (principal); Z68.42 Body mass index [BMI] 45.0-49.9, adult; E11.65 Type 2 diabetes mellitus with hyperglycemia; I11.9 Hypertensive heart disease without heart failure; J44.9 Chronic obstructive pulmonary disease, unspecified; E66.01 Morbid (severe) obesity due to excess calories; E11.42 Type 2 diabetes mellitus with diabetic polyneuropathy; I25.10 Atherosclerotic heart disease of native coronary artery without angina pectoris; E78.5 Hyperlipidemia, unspecified; I08.1 Rheumatic disorders of both mitral and tricuspid valves; G89.29 Other chronic pain; M54.9 Dorsalgia, unspecified; R07.2 Precordial pain; M19.90 Unspecified osteoarthritis, unspecified site; Z96.41 Presence of insulin pump (external) (internal); Z79.4 Long term (current) use of insulin; K21.9 Gastro-esophageal reflux disease without esophagitis; R42 Dizziness and giddiness; K27.9 Peptic ulcer, site unspecified, unspecified as acute or chronic, without hemorrhage or perforation; E03.9 Hypothyroidism, unspecified; Z83.3 Family history of diabetes mellitus; Z82.49 Family history of ischemic heart disease and other diseases of the circulatory system; Z88.6 Allergy status to analgesic agent

== ENCOUNTER 2016-12-21 06:15 | Day surgery (SDC) | payer MEDICARE, OTHER ==
[2016-12-20 08:59] VITALS: BMI 46.7
[2016-12-21] MEDS ORDERED: Lidocaine 2% Inj (20ml) ONE (06:33)
[2016-12-21] MEDS ORDERED: Phenylephrine 10 mg/ml Inj ONE (06:34)
[2016-12-21] MEDS ORDERED: Iohexol 350mgl/ml 50 ML ONE (06:34)
[2016-12-21] MEDS ORDERED: Iodixanol 320 MG/ML 200 ML BOTTLE IV ONE (06:34)
[2016-12-21] MEDS ORDERED: Nitroglycerin 50mg in D5W 0 MG/0 ML BOTTLE IV ONE (06:34)
[2016-12-21] MEDS ORDERED: Iodixanol 320 MG/ML 100 ML BOTTLE IV ONE (06:34)
[2016-12-21] MEDS ORDERED: Acetylcysteine 20% Inhal Soln (4ml) PO STA (06:35)
[2016-12-21] MEDS ORDERED: Acetylcysteine 20% Inhal Soln (4ml) PO ONE (06:55)
[2016-12-21] MEDS ORDERED: Midazolam 2 MG/2 ML VIAL ONE ×2 (07:34→08:06)
[2016-12-21] MEDS ORDERED: Atropine 0.4 mg/ml Inj (1 mL) ONE (08:12)
[2016-12-21] MEDS ORDERED: Sodium Chloride 0.9% 1,000 ML IV SCH (08:30)
[2016-12-21 09:06] VITALS: TEMP 97.8
--- NOTE | 2016-12-21 09:56 | CARDCATH ---
PROCEDURE DATE: 12/21/2016 HISTORY: This is a 71-year-old woman with a history of hypertension, diabetes, recently admitted wit h chest discomfort. Stress test suggested anterior ischemia, and cardiac catheterization was recomme nded. PROCEDURES: 1. Selective left and right coronary angiography. 2. Left ventriculography. 3. Right femoral arteriography. 4. Mynx deployment. FINDINGS: HEMODYNAMICS: Aortic pressure was 130/76 with left ventricular pressure of 130/18. CORONARY ANATOMY: 1. The left main stem was normal. 2. The left anterior descending artery and its branches were normal as well. 3. The left circumflex artery and its branches were normal as well. 4. The right coronary artery was dominant and normal. LEFT VENTRICULOGRAPHY: Left ventriculogram was performed with hand injection only in the HILTON injecti on. This revealed normal wall motion and ejection fraction of 60%. RIGHT FEMORAL ARTERIOGRAPHY: A right femoral arteriogram was performed in the HILTON protection. This revealed the catheter access site to be in the high SFA with evidence of a high bifurcation of the f emoral artery. The puncture site was then closed with deployment of a Mynx device. CONCLUSION: 1. Normal coronary arteries. 2. Normal LV function. 3. False-positive stress test. 4. Noncardiac chest pain. RECOMMENDATIONS: Continued risk factor control is advised. Outpatient workup for noncardiac cause o f chest pain was recommended as well. Tamir Martin MD cc:Christine Lebron MD [id number] TT: 12/21/2016 09:55:55 jn
[2016-12-21 10:46] VITALS: BP 111/52; PULSE 81; RESP 20; O2SAT 95
--- NOTE | 2016-12-22 07:42 | CON ---
DATE: 12/21/2016 This 71-year-old female was admitted to the [facility] for elective cardiac catheterization after an outpatient stress test by compounder helper, Dr. Jean Carlos Carolina in his office revealed suspicion for coronary artery disease. PAST MEDICAL HISTORY: Extensive and includes history of insulin-dependent diabetes mellitus, morbid obesity, history of stable atherosclerotic heart disease, peptic ulcer disease, hyperlipidemia, chronic hypertension, peripheral neuropathy, chronic obstructive pulmonary disease and degenerative arthritis. OUTPATIENT MEDICATIONS: Had included Zocor 40 mg p.o. daily, Prilosec 20 mg p.o. b.i.d., Cozaar 50 mg p.o. daily, insulin pump with dosing instructions as per endocrinology, Neurontin 300 mg p.o. b.i.d., Neurontin 600 mg p.o. at bedtime, Lasix 40 mg p.o. b.i.d., Advair Diskus 250/50 two puffs b.i.d., Coreg 12.5 mg p.o. daily and ProAir 1 puff q. 6 hours p.r.n. shortness of breath. HISTORY OF PRESENT ILLNESS: The patient was recently hospitalized in November 2016 at the [facility] and discharged after presenting with weakness, hypoglycemia after a recent relocation from [place]. At that time, the patient had also been taking Invokana, metformin and Victoza, which were all discontinued after further evaluation of hypoglycemia. The patient had a 2D echocardiogram done at the [facility] that had revealed apical hypokinesis with a slightly reduced left ventricular ejection fraction, for which she was recommended by cardiology to continue medication as outlined above and to have an outpatient stress test for completeness sake. I was subsequently informed that she had suspicious changes of ischemia on her stress test and the patient was admitted to [facility] for elective cardiac cath this morning. The patient was given Mucomyst 20%, 3 mL p.o. precardiac cath and IV fluid hydration as well. REVIEW OF SYSTEMS: HEAD: There was no headache or seizures. EYES: No change in visual acuity. EARS: No hearing loss. THROAT: No swallowing difficulty. NECK: No stiffness. CARDIAC: As per HPI. PULMONARY: Chronic obstructive pulmonary disease. GASTROINTESTINAL: Peptic ulcer disease with gastroesophageal reflux disease. GENITOURINARY: No dysuria. SKIN: Without rash. NEUROLOGICAL: Neuropathy. VASCULAR: No claudication. PSYCHOLOGICAL: No depression. ENDOCRINOLOGICAL: Insulin-dependent diabetes mellitus, hyperlipidemia. FAMILY HISTORY: Noncontributory. SOCIAL HISTORY: She is a nondrinking, nonsmoking, nondrug misusing, retired homemaker. ALLERGIES: SHE HAS A SENSITIVITY TO ASPIRIN. PHYSICAL EXAMINATION: VITAL SIGNS: Shows temperature 97.9, respirations 20, pulse 76, and blood pressure 139/74. Her pulse ox was 95% on room air. HEENT: Head is normocephalic, atraumatic. Eyes showed no icterus. Ears clear. Throat not injected. NECK: Supple. HEART: Regular S1, S2. LUNGS: Clear. ABDOMEN: Obese, nontender. No palpable organomegaly. No rebound, no guarding , no tenderness. EXTREMITIES: No clubbing, no cyanosis, no edema. SKIN: Without rash. NEUROLOGICAL: Intact. PSYCHOLOGICAL: Alert and oriented x 3. VASCULAR: Legs were warm to touch. LABORATORY DATA: Showed most recent white count 6100, hemoglobin 13.4, hematocrit 40.8, platelets 224,000. Sodium 140, K 4.1, chloride 103, bicarb 30 , BUN 15, creatinine 0.8 and a random blood sugar was 209. Liver function testing was normal with bilirubin 0.4, AST 24, ALT 23, alk phos 73. I discussed the cardiac cath findings with Dr. Tamir Martin, which revealed no evidence of active coronary artery disease. She had a normal left ventricular ejection fraction and normal wall motion. All of this was discussed with the patient in detail at her bedside. I have given her a prescription for Mucomyst 20%, 3 mL to be mixed with juice twice daily for 5 additional doses. She is also aware she is to drink fluids liberally over the next several days. She has a followup appointment with my office within approximately 1 week and she has been advised to follow up with Dr. Martin as per his instructions as well. All of this was discussed in detail with the patient, co-consultants, nursing staff and overall prognosis is stable at present. Christine Lebron MD cc: [id number] TT: 12/21/2016 16:55:08 Confirmation # [id number] Dictation # [id number] moisés [id number]
== END 2016-12-21 12:15 | disposition home or self-care (01) ==
LOC: CATH 06:15
PROVIDERS: ATTEND Internal Medicine Cardiovascular Disease
DX: R07.89 Other chest pain (principal); E11.9 Type 2 diabetes mellitus without complications; I10 Essential (primary) hypertension; R94.39 Abnormal result of other cardiovascular function study; I20.9 Angina pectoris, unspecified; R06.00 Dyspnea, unspecified; E66.9 Obesity, unspecified; Z90.710 Acquired absence of both cervix and uterus
CPT/HCPCS: 36415; 82948; 86850; 86900; 93458; 99152; C1760; C1769; C2629; J1644 ×2; J2250; J3010; J7030; J7040; Q9967

== ENCOUNTER 2018-07-27 09:43 | Outpatient (CLI) | payer MEDICARE, MEDICAID | END 2018-07-27 09:44 | disposition home or self-care (01) | LOC: RAD 09:43 ==

== ENCOUNTER 2018-11-26 10:38 | Outpatient (CLI) | payer MEDICARE, MEDICAID | END 2018-11-26 10:39 | disposition home or self-care (01) | LOC: RAD 10:38 ==